=== PATIENT | female | born 1960 | race Caucasian/White ===

== ENCOUNTER 2016-10-25 11:26 | Emergency (ER) | payer OTHER ==
[2016-10-25 11:35] VITALS: BP 148/85; TEMP 99.5; BMI 25.9
--- NOTE | 2016-10-25 12:01 | PDOC ---
History of Present Illness - General Chief Complaint: Respiratory Stated Complaint: COLD SYMPTOMS Time Seen by Provider: 10/25/16 12:00 History Source: Patient Exam Limitations: No Limitations - History of Present Illness Initial Comments: CHIEF COMPLAINT: 56 y/o female with no significant PMH c/o cold symptoms x 6 days. HISTORY OF PRESENT ILLNESS: The patient states she has had body aches, fever and very intermittent dry cough x 6 days. Her highest temp was 102. She has been taking Motrin for fever, with last dose at 1:30am. She admits her has bronchitis symptoms for the past 3 weeks but he refuses to see a doctor. She denies earache, runny nose, sore throat, night sweats, n/v/d, CP, SOB, hemoptysis, abd pain, back pain, decrease in PO intake, decrease in urinary output, recent travel, smoking history, control use, lower leg/calf pain. She does not have a PCP. Vital signs on arrival are notable for pulse of 102 secondary to temp of 99.5. REVIEW OF SYSTEMS: GENERAL/CONSTITUTIONAL: +fever. +body aches. No weakness. No weight change. HEAD, EYES, EARS, NOSE AND THROAT: No change in vision. No ear pain or discharge. No sore throat. CARDIOVASCULAR: No chest pain or shortness of breath. RESPIRATORY: +intermittent dry cough. No wheezing or hemoptysis. GASTROINTESTINAL: No abd pain, nausea, vomiting, diarrhea. GENITOURINARY: No dysuria, frequency, or change in urination. MUSCULOSKELETAL: No joint or muscle swelling or pain. No neck or back pain. SKIN: No rash or easy bruising. NEUROLOGIC: No headache, vertigo, loss of consciousness, or loss of sensation. PHYSICAL EXAM: GENERAL: The patient is awake, alert, and fully oriented, in no acute distress. She is very well appearing, ambulatory, with no cough appreciated in the ER. HEAD: Normal with no signs of trauma. ENT: Pupils equal, round and reactive to light, extraocular movements intact, sclera anicteric, conjunctiva clear. Neck supple. LUNGS: Clear to auscultation bilaterally. Normal excursion. No respiratory distress or use of accessory muscles. CV: RRR, S1/S2, no MRG. Cap refill < 2 sec. ABDOMEN: Soft, non-distended, non-tender even to deep palpation, no hepatomegaly or splenomegaly, no masses. EXTREMITIES: Normal range of motion, no edema. NEUROLOGICAL: Normal speech, normal gait. CN II-XII grossly intact. PSYCH: Normal mood, normal affect. SKIN: Warm, dry, normal turgor, no rashes or lesions noted. Past History - Past Medical History Allergies/Adverse Reactions: Allergies Allergy/AdvReac Type Severity Reaction Status Date / Time No Known Allergies Allergy Verified 10/25/16 11:32 Home Medications: Ambulatory Orders NK [No Known Home Medication] 08/12/15 - Immunization History Immunization Up to Date: Yes - Psycho/Social/Smoking Cessation Hx Anxiety: No Suicidal Ideation: No Smoking History: Former smoker Have you smoked in the past 12 months: No If you are a former smoker, when did you quit?: 2006 Information on smoking cessation initiated: No Hx Alcohol Use: No Drug/Substance Use Hx: No *Physical Exam - Vital Signs Last Vital Signs Temp Pulse Resp BP Pulse Ox 99.5 F 102 H 18 148/85 99 10/25/16 11:33 10/25/16 11:33 10/25/16 11:33 10/25/16 11:33 10/25/16 11:33 Medical Decision Making - Medical Decision Making A/P: 56 y/o female with most likely viral URI. Plan is as follows: 1. PO tylenol 2. PO claritin The patient is no longer tachycardic. Suggested she alternate between tylenol and motrin every 3 hours for fever, get plenty of rest and drink lots of fluids. Provided referral to Dr. Vega and strongly recommended she set up a PCP. Instructed her to return to the ER with any worsening or concerning symptoms. The patient verbalizes understanding of all instructions, has no further questions and is awaiting discharge. *DC/Admit/Observation/Transfer Diagnosis at time of Disposition: Viral illness - Discharge Dispostion Disposition: HOME Condition at time of disposition: Improved - Referrals Referrals: Desmond Vega MD [Staff Physician] - Call tomorrow (to set up primary care) - Patient Instructions Printed Discharge Instructions: DI for Viral Syndrome, DI for Viral Upper Respiratory Infection -- Adult Additional Instructions: Discharge Instructions: -Alternate between Motrin and tylenol every 3 hours for fever/body aches -Take over the counter claritin daily for congestion -Drink plenty of fluids -Get lots of rest -Follow up with Dr. Vega within 2 weeks to establish primary care -Return to the ER with any worsening or concerning symptoms. - Post Discharge Activity Work/School Note: Back to Work
[2016-10-25] MEDS ORDERED: LORATADINE 10 MG TABLET PO ONE (12:06)
[2016-10-25] MEDS ORDERED: ACETAMINOPHEN 325 MG TABLET (FP) PO ONE (12:06)
[2016-10-25] MEDS ORDERED: ACETAMINOPHEN 325 MG TABLET (FP) ONE (12:13)
[2016-10-25] MEDS ORDERED: LORATADINE 10 MG TABLET ONE (12:13)
[2016-10-25 12:34] VITALS: PULSE 91
== END 2016-10-25 12:40 | disposition home or self-care (01) ==
LOC: JERFT 11:26
DX: B34.9 Viral infection, unspecified (principal); Z87.891 Personal history of nicotine dependence
CPT/HCPCS: 99281-25